=== PATIENT | male | born 2000 | race African-American/Black ===

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

== ENCOUNTER 2024-07-14 14:53 | Emergency (ER) | payer OTHER ==
[2024-07-14 15:12] VITALS: BP 103/56; PULSE 68; RESP 18; TEMP 98.4; BMI 22.1
[2024-07-14] MEDS ORDERED: AMOXICILLIN 250 MG CAPSULE ONE (16:15)
[2024-07-14] MEDS ORDERED: ACETAMINOPHEN 650 MG/20.3 ML ORAL SOLUTION (CUPS) ONE (16:16)
[2024-07-14] MEDS ORDERED: IBUPROFEN 400 MG TABLET (FP) PO ONE (16:16)
[2024-07-14] MEDS: IBUPROFEN 400 MG TABLET (FP) PO ONE (16:18)
[2024-07-14] MEDS: AMOXICILLIN 500 MG CAPSULE (FP) PO ONE (16:18)
[2024-07-14] MEDS: ACETAMINOPHEN 650 MG/20.3 ML ORAL SOLUTION (CUPS) PO ONE (16:19)
[2024-07-14] MEDS ORDERED: MAG HYDROX/ALH/SMC/DPHA/LIDO 240 ML MOUTHWASH MM SCH (18:00)
== END 2024-07-14 17:29 | disposition home or self-care (01) ==
LOC: JERFT 14:53
DX: K03.81 Cracked tooth (principal); K05.6 Periodontal disease, unspecified; K08.89 Other specified disorders of teeth and supporting structures
CPT/HCPCS: 99283-25